=== PATIENT | male | born 1950 | race Caucasian/White ===

== ENCOUNTER → 2016-11-12 | Outpatient (CLI) | payer BC, MEDICARE ==
[~2016-11-12] MED LIST: AMBIEN 10MG10 MG PO; ASPI325T6 PO; ASPIR-LOW81 MG PO; ASPIRIN 81M81 MG/TA2 PO; COZAAR100 MG PO; DILAUDID 2MG TAB2 MG PO; IMDUR 30MG30 MG/TAB PO; LOPRESSOR 225 MG/TAB PO; LOPRESSOR 550 MG/TAB PO; LORTAB 5/500 501 TAB PO; NITROSTAT0.4 MG/TAB SL; PRINIVIL20 MG PO; TOPROL XL50 MG PO; VALIUM 5MG T5 MG/TAB PO; VYTORIN; VYTORIN 10 MG-41 TAB PO; ZOCOR 80MG80 MG PO
== END ==
LOC: COL.RAD 08:57
DX: M48.06 Spinal stenosis, lumbar region (principal); M51.26 Other intervertebral disc displacement, lumbar region; M47.817 Spondylosis without myelopathy or radiculopathy, lumbosacral region

== ENCOUNTER 2017-09-18 06:40 | Day surgery (SDC) | payer MEDICARE, BC ==
[~2017-09-18] VITALS: Ht 172.7 cm; Wt 71.2 kg
[~2017-09-18 06:40] MED LIST changes: -IMDUR 30MG30 MG/TAB PO; +IMDUR 60MG60 MG/TAB PO
[2017-09-18] MEDS ORDERED: LOPRESSOR100 MG PO (06:58)
[2017-09-18] MEDS ORDERED: PROTONIX 40MG T40 MG PO (07:00)
[2017-09-18] MEDS ORDERED: NORVASC 10MG10 MG PO (07:00)
[2017-09-18 07:08] VITALS: BP 125/84; PULSE 53; TEMP 98.4
[2017-09-18 08:24] VITALS: BP 115/84; PULSE 57; TEMP 98
[2017-09-18 08:40] VITALS: BP 104/68; PULSE 52
[2017-09-18 08:55] VITALS: BP 118/81; PULSE 58
== END 2017-09-18 09:05 | disposition home or self-care (01) ==
LOC: SDCO 06:40
DX: K22.70 Barrett's esophagus without dysplasia (principal); R10.13 Epigastric pain; K21.9 Gastro-esophageal reflux disease without esophagitis; Z87.11 Personal history of peptic ulcer disease
CPT/HCPCS: OP; J2250; J3010; J7030

== ENCOUNTER 2019-09-12 05:53 | Day surgery (SDC) | payer MEDICARE, BC ==
[~2019-09-12] VITALS: Ht 172.8 cm; Wt 61.4 kg
[2019-09-12] VITALS (13 sets, daily range): BP systolic 98–145; BP diastolic 70–88; PULSE 52–69; TEMP 98
[~2019-09-12 05:53] MED LIST changes: +NORVASC 10MG10 MG PO; +PROTONIX 40MG T40 MG PO
[2019-09-12 06:54] LABS: HEMATOCRIT 39.3 % (42.0-52.0); HEMOGLOBIN 13.1 g/dl (13.5-18.0); MEAN CELL VOLUME 88 fl (80.0-100.0); MEAN CORPUSCULAR HEMOGLOBIN 29 pg (27.0-31.0); MEAN CORPUSCULAR HGB CONC 33 g/dl (33.0-37.0); MEAN PLATELET VOLUME 12.8 fl (7.4-10.4); PLATELET COUNT 132 K/mm3 (130-400); RED BLOOD COUNT 4.46 M/mm3 (4.20-5.60); REDCELL DISTRIBUTION WIDTH-CV 13.6 % (11.5-14.5)
[2019-09-12 06:59] LABS: PROTHROMBIN TIME 11.3 SECONDS (9.7-12.8)
[2019-09-12 07:02] LABS: PARTIAL THROMBOPLASTIN TIME 33.1 SECONDS (26.0-37.0)
[2019-09-12 07:08] LABS: CALCIUM 9.3 mg/dL (8.4-10.2); CREATININE, serum 0.81 (0.66-1.25); POTASSIUM 4.1 mmol/L (3.4-5.0)
[2019-09-12] MEDS ORDERED: ASPIRIN 81M81 MG/TA2 PO (07:48)
[2019-09-12] MEDS ORDERED: NITROSTAT0.4 MG/TAB SL (07:51)
--- NOTE | 2019-09-12 08:39 | NUR ---
SEE MERGE DOCUMENTATION FOR MEDICATION ADMINISTRATION TIMES AND INTRA/POST PROCEDURE SEDATION ASSESSMENTS. PLAN FOR RIGHT FEMORAL ACCESS.
[2019-09-12] MEDS ORDERED: IMDUR 60MG60 MG/TAB PO (09:45)
--- NOTE | 2019-09-12 09:45 | NUR ---
Patient transported to [facility] at this time. Connected to VS monitors on arrival, all VS's WNL. Bedside report/handoff to JEAN-PIERRE Hoffman. Right femoral access site assessed; site soft to palpation and dressing dry and intact. Right DP pulse +2. Pt denies pain or sensation changes. Education provided regarding flat time, movement restrictions, and s/sx to report. Pt verbalizes understanding of instructions. All questions answered.
--- NOTE | 2019-09-12 14:20 | NUR ---
Discharge instructions given to pt.Pt verbalizes understanding.INt removed,catheter tip intact.Pt escorted out via wheelchair by this nurse.
== END 2019-09-12 15:05 | disposition home or self-care (01) ==
LOC: COL.CAR 05:53
PROVIDERS: Internal Medicine Cardiovascular Disease
DX: I25.110 Atherosclerotic heart disease of native coronary artery with unstable angina pectoris (principal); I10 Essential (primary) hypertension; B19.20 Unspecified viral hepatitis C without hepatic coma; E78.5 Hyperlipidemia, unspecified; G89.29 Other chronic pain; M54.9 Dorsalgia, unspecified; Z88.8 Allergy status to other drugs, medicaments and biological substances; Z79.82 Long term (current) use of aspirin; Z87.891 Personal history of nicotine dependence; Z95.1 Presence of aortocoronary bypass graft
CPT/HCPCS: J1644; J2250; J3010; Q9967

== ENCOUNTER 2019-10-02 14:24 | Emergency (ER) | payer MEDICARE, BC ==
[~2019-10-02] VITALS: Ht 172.7 cm; Wt 60.0 kg
[2019-10-02 14:25] VITALS: TEMP 97.3
[2019-10-02 15:04] LABS: BASO # 0.1 (0.0-0.2); BASO % 0.5 % (0.0-2.0); EOS # 0.3 (0.0-0.7); EOS % 1.9 % (0-4.0); GRAN # 12.9 (1.4-6.5); GRAN % 80.6 % (42.2-75.2); HEMOGLOBIN 13.1 g/dl (13.5-18.0); LYMPH # 1.7 (1.2-3.4); LYMPH % 10.7 % (20.0-51.0); MEAN CELL VOLUME 89 fl (80.0-100.0); MEAN CORPUSCULAR HEMOGLOBIN 30 pg (27.0-31.0); MEAN CORPUSCULAR HGB CONC 34 g/dl (33.0-37.0); MEAN PLATELET VOLUME 12.3 fl (7.4-10.4); MONO # 0.9 (0.1-0.6); MONO % 5.7 % (1.7-9.3); PLATELET COUNT 172 K/mm3 (130-400); RED BLOOD COUNT 4.38 M/mm3 (4.20-5.60); REDCELL DISTRIBUTION WIDTH-CV 13.3 % (11.5-14.5)
[2019-10-02 15:17] LABS: ALANINE AMINOTRANSFERASE 13 U/L (4-49); ALBUMIN 4.4 gm/dL (3.5-5.0); ALKALINE PHOSPHATASE 90 U/L (50-136); ANION GAP 12 mmol/L (7-16); AST,SGOT 22 U/L (15-37); BILIRUBIN,TOTAL 0.8 mg/dL (0.0-1.0); BLOOD UREA NITROGEN 16 mg/dL (9-20); CALCIUM 9.3 mg/dL (8.4-10.2); CARBON DIOXIDE 23 mmol/L (22-30); CHLORIDE 101 mmol/L (98-107); CREATININE, serum 1.33 (0.66-1.25); GLUCOSE 201 mg/dL (74-106); POTASSIUM 3.4 mmol/L (3.4-5.0); SODIUM 135 mmol/L (137-145); TOTAL PROTEIN 7.2 gm/dL (6.4-8.2)
[2019-10-02 15:27] LABS: TROPONIN-I < 0.012 ng/mL (0.000-0.035)
[2019-10-02 18:18] LABS: COLLECTION METHOD CLEAN CATCH
[2019-10-02 18:31] LABS: PH 6 (5-8); SQUAMOUS EPITHELIAL None Seen /hpf; URINE APPEARANCE Clear; URINE BACTERIA None Seen /hpf; URINE BILIRUBIN Negative (NEGATIVE); URINE BLOOD Negative (NEGATIVE); URINE COLOR Yellow; URINE GLUCOSE Negative (NEGATIVE); URINE KETONE Negative (NEGATIVE); URINE LEUKOCYTE ESTERASE Negative (NEGATIVE); URINE NITRATE Negative (NEGATIVE); URINE PROTEIN(semi-quant) Negative (NEGATIVE); URINE RBC None Seen /hpf; URINE UROBILINOGEN Negative (NEGATIVE)
[2019-10-02 18:54] VITALS: BP 127/78; PULSE 68
== END 2019-10-02 18:54 | disposition home or self-care (01) ==
LOC: COL.ER 14:24
PROVIDERS: Emergency Medicine
DX: S02.2XXA Fracture of nasal bones, initial encounter for closed fracture (principal); T67.5XXA Heat exhaustion, unspecified, initial encounter; R55 Syncope and collapse; I25.10 Atherosclerotic heart disease of native coronary artery without angina pectoris; Z95.9 Presence of cardiac and vascular implant and graft, unspecified; Z79.82 Long term (current) use of aspirin; V49.9XXA Car occupant (driver) (passenger) injured in unspecified traffic accident, initial encounter
CPT/HCPCS: J2405; J7030

== ENCOUNTER 2019-11-13 08:53 | Emergency (ER) | payer MEDICARE, BC ==
[~2019-11-13] VITALS: Ht 172.7 cm; Wt 59.1 kg
[2019-11-13 08:59] VITALS: TEMP 98.1
[2019-11-13 09:11] LABS: BASO # 0.1 (0.0-0.2); BASO % 1.2 % (0.0-2.0); EOS # 0.4 (0.0-0.7); GRAN # 6.1 (1.4-6.5); GRAN % 66.8 % (42.2-75.2); HEMATOCRIT 43.9 % (42.0-52.0); HEMOGLOBIN 15.2 g/dl (13.5-18.0); LYMPH # 1.9 (1.2-3.4); LYMPH % 21.2 % (20.0-51.0); MEAN CELL VOLUME 86 fl (80.0-100.0); MEAN CORPUSCULAR HEMOGLOBIN 30 pg (27.0-31.0); MEAN CORPUSCULAR HGB CONC 35 g/dl (33.0-37.0); MEAN PLATELET VOLUME 12.8 fl (7.4-10.4); MONO # 0.6 (0.1-0.6); MONO % 6.5 % (1.7-9.3); PLATELET COUNT 140 K/mm3 (130-400); RED BLOOD COUNT 5.09 M/mm3 (4.20-5.60); REDCELL DISTRIBUTION WIDTH-CV 12.5 % (11.5-14.5)
[2019-11-13 09:25] LABS: ALANINE AMINOTRANSFERASE 12 U/L (4-49); ALBUMIN 5.1 gm/dL (3.5-5.0); ALKALINE PHOSPHATASE 93 U/L (50-136); ANION GAP 9 mmol/L (7-16); AST,SGOT 31 U/L (15-37); BILIRUBIN,TOTAL 0.8 mg/dL (0.0-1.0); BLOOD UREA NITROGEN 11 mg/dL (9-20); CARBON DIOXIDE 25 mmol/L (22-30); CHLORIDE 103 mmol/L (98-107); CREATININE, serum 0.89 (0.66-1.25); GLUCOSE 117 mg/dL (74-106); POTASSIUM 4.2 mmol/L (3.4-5.0); SODIUM 138 mmol/L (137-145); TOTAL PROTEIN 8.4 gm/dL (6.4-8.2)
[2019-11-13 09:36] LABS: TROPONIN-I < 0.012 ng/mL (0.000-0.035)
[2019-11-13 09:50] LABS: COLLECTION METHOD CLEAN CATCH
[2019-11-13 09:58] LABS: PH 7 (5-8); SQUAMOUS EPITHELIAL None Seen /hpf; URINE APPEARANCE Clear; URINE BACTERIA None Seen /hpf; URINE BILIRUBIN Negative (NEGATIVE); URINE BLOOD Negative (NEGATIVE); URINE COLOR Straw; URINE GLUCOSE Negative (NEGATIVE); URINE KETONE Negative (NEGATIVE); URINE LEUKOCYTE ESTERASE Negative (NEGATIVE); URINE NITRATE Negative (NEGATIVE); URINE PROTEIN(semi-quant) Negative (NEGATIVE); URINE RBC 0-2 /hpf; URINE UROBILINOGEN Negative (NEGATIVE)
[2019-11-13 13:00] VITALS: BP 148/91; PULSE 76
== END 2019-11-13 13:17 | disposition home or self-care (01) ==
LOC: COL.ER 08:53
PROVIDERS: Emergency Medicine
DX: R07.9 Chest pain, unspecified (principal); R06.00 Dyspnea, unspecified; R42 Dizziness and giddiness; I10 Essential (primary) hypertension; Z87.891 Personal history of nicotine dependence; Z95.1 Presence of aortocoronary bypass graft; Z98.61 Coronary angioplasty status; Z79.82 Long term (current) use of aspirin
CPT/HCPCS: J7030; Q9967

== ENCOUNTER 2020-01-11 07:05 | Outpatient (CLI) | payer MEDICARE, BC ==
[~2020-01-11] VITALS: Ht 172.8 cm; Wt 63.0 kg
[2020-01-11 07:29] VITALS: BP 123/99; PULSE 90; TEMP 97.7
[2020-01-11] MEDS ORDERED: NORVASC2.5 MG PO (07:48)
[2020-01-11] MEDS ORDERED: PROTONIX 40MG T40 MG PO (07:48)
[2020-01-11] MEDS ORDERED: CARDIZEM CD 12120 MG PO (07:49)
[2020-01-11 07:53] VITALS: BP 120/93; PULSE 90; TEMP 97.7
--- NOTE | 2020-01-11 09:30 | NUR ---
PROCEDURE COMPLETED BY DR EARL, REPORT FROM KATE MOREJON. PT IS UP IN ROOM DRESSED. DRESSING OVER MIDDLE CHEST IS CLEAN AND DRY. NO C/O. REVIEWED DISCHARGE INST. WITH PT AND . WILL INTELLIGENCE APPLICATIONS NEW RX, REVIEWED INCISION CARE AND APPT. WITH PT WITH VERBAL UNDERSTANDING. PT DISCHARGED AT 0950 AMB. WITH TO CAR
[2020-01-11] MEDS ORDERED: CEPHALEXIN500 M1 PO (09:39)
== END 2020-01-11 10:50 | disposition home or self-care (01) ==
LOC: COL.CAR 07:05
DX: I47.2 Ventricular tachycardia (principal); R55 Syncope and collapse; I10 Essential (primary) hypertension; E78.5 Hyperlipidemia, unspecified; Z88.8 Allergy status to other drugs, medicaments and biological substances; Z95.1 Presence of aortocoronary bypass graft

== ENCOUNTER 2021-02-05 17:18 | Inpatient (IN) | payer MEDICARE, BC ==
[2021-02-05] VITALS (63 sets, daily range): BP systolic 154–158; BP diastolic 104–105; PULSE 85–92; TEMP 97.7; O2SAT 90–98
[~2021-02-05] VITALS: Ht 175.3 cm; Wt 60.7 kg
[~2021-02-05 17:18] MED LIST changes: +CARDIZEM CD 12120 MG PO; +CEPHALEXIN500 M1 PO; +NORVASC2.5 MG PO
[2021-02-05 18:15] LABS: BASO # 0.1 K/mm3 (0.0-0.2); BASO % 0.7 % (0.0-2.0); EOS # 0.4 K/mm3 (0.0-0.7); EOS % 2.9 % (0-4.0); GRAN # 10.1 K/mm3 (1.4-6.5); GRAN % 74.4 % (42.2-75.2); HEMATOCRIT 45.8 % (42.0-52.0); HEMOGLOBIN 16.4 g/dl (13.5-18.0); LYMPH # 1.9 K/mm3 (1.2-3.4); MEAN CELL VOLUME 83 fl (80.0-100.0); MEAN CORPUSCULAR HEMOGLOBIN 30 pg (27.0-31.0); MEAN CORPUSCULAR HGB CONC 36 g/dl (33.0-37.0); MEAN PLATELET VOLUME 12.6 fl (7.4-10.4); MONO # 1.1 K/mm3 (0.1-0.6); MONO % 7.7 % (1.7-9.3); PLATELET COUNT 174 K/mm3 (130-400); REDCELL DISTRIBUTION WIDTH-CV 12.4 % (11.5-14.5)
[2021-02-05 18:27] LABS: ALBUMIN 4.7 gm/dL (3.4-4.8); ALKALINE PHOSPHATASE 101 U/L (40-150); ANION GAP 12 mmol/L (7-16); AST,SGOT 14 U/L (5-34); BLOOD UREA NITROGEN 17 mg/dL (8-26); CALCIUM 9.8 mg/dL (8.4-10.2); CARBON DIOXIDE 20 mmol/L (23-31); CHLORIDE 104 mmol/L (98-107); CREATININE, serum 0.84 mg/dL (0.72-1.25); GLUCOSE 99 mg/dL (70-99); POTASSIUM 3.6 mmol/L (3.5-4.5); SODIUM 136 mmol/L (136-145); TOTAL PROTEIN 7.7 gm/dL (6.2-8.1)
[2021-02-05 18:29] LABS: ALANINE AMINOTRANSFERASE < 6 U/L (0-55)
[2021-02-05 18:34] LABS: TROPONIN-I < 0.010 ng/mL (0.00-0.033)
[2021-02-06] VITALS (689 sets, daily range): BP systolic 116–164; BP diastolic 74–110; PULSE 62–110; TEMP 97.3–98.6; O2SAT 87–99
[2021-02-06] MEDS ORDERED: KEPPRA 500MG500 MG PO (05:58)
--- NOTE | 2021-02-06 07:00 | NUR ---
RECEIVED REPORT FROM JEAN-PIERRE CONTE. PT SLEEPING IN BED. VSS. CALL LIGHT WITHIN REACH. SEE GTT FLOWSHEET.
[2021-02-06 07:59] LABS: BASO # 0.1 K/mm3 (0.0-0.2); BASO % 0.7 % (0.0-2.0); EOS # 0.1 K/mm3 (0.0-0.7); EOS % 0.9 % (0-4.0); GRAN # 10.6 K/mm3 (1.4-6.5); GRAN % 76.8 % (42.2-75.2); HEMATOCRIT 45.8 % (42.0-52.0); HEMOGLOBIN 16.4 g/dl (13.5-18.0); LYMPH % 14.3 % (20.0-51.0); MEAN CELL VOLUME 84 fl (80.0-100.0); MEAN CORPUSCULAR HEMOGLOBIN 30 pg (27.0-31.0); MEAN CORPUSCULAR HGB CONC 36 g/dl (33.0-37.0); MONO # 0.9 K/mm3 (0.1-0.6); MONO % 6.9 % (1.7-9.3); PLATELET COUNT 173 K/mm3 (130-400); RED BLOOD COUNT 5.44 M/mm3 (4.20-5.60); REDCELL DISTRIBUTION WIDTH-CV 12.8 % (11.5-14.5)
[2021-02-06 08:12] LABS: CALCIUM 9.4 mg/dL (8.4-10.2); CREATININE, serum 0.82 mg/dL (0.72-1.25); POTASSIUM 3.6 mmol/L (3.5-4.5)
--- NOTE | 2021-02-06 12:31 | NUR ---
Initial visit; Patient and his thanked Blemish Remover for looking in on him and offering God's blessings.
--- NOTE | 2021-02-06 12:37 | NUR ---
power lineworker met with patient at bedside. Lore ([phone]) present at bedside as well. Patient reports that he is fully independent with his activities of daily living and he does not utilize any medical equipment such as a cane, walker, or O2. Is hard of hearing that requires him to wear hearing aids. Patient reports that his PCP is [facility] Coreas and that he utilizes [facility] for perscriptions. Lore reports that the patient does have a DPOA-HC established and that she is listed as his agent. Contact made with he office of Shanna Coreas who reports to having a DPOA-HC on file. Request made for their office to fax a copy of it to the ICU fax.
--- NOTE | 2021-02-06 13:37 | NUR ---
PT TO [facility]NAGER [facility]IT[facility] WITHOUT HEPARIN GTT AT THIS TIME. WILL WAIT FOR POST CATH ORDERS IF NEED TO CONTINUE LATER OR NOT.
--- NOTE | 2021-02-06 13:50 | NUR ---
SEE MERGE FOR MEDICATION ADMINISTRATION TIMES/DOSAGES AND INTRA/POST SEDATION ASSESSMENT.
--- NOTE | 2021-02-06 15:20 | NUR ---
PT TO [facility]IP[facility] AT 1337, REPORT RECEIVED FROM JEAN-PIERRE STOVER AT 0524. PT ARRIVES BACK TO ICU 2 AT 1520. PLACED ON BEDSIDE CONTINUOUS MONITOR. CALL LIGHT WITHIN REACH. SEE GTT FLOWSHEET. PT DENIES ANY CP/PRESSURE. RT GROIN CATH SITE SOFT AND WITHOUT PAIN UPON PALPATATION. PT INFORMED OF POC THAT THEY HAVE A FLAT TIME TILL 1920. VERBALIZED UNDERSTANDING.
[2021-02-06 18:33] LABS: COLLECTION METHOD CLEAN CATCH
[2021-02-06 18:49] LABS: MUCOUS Present /lpf; PH 6 (5-8); SQUAMOUS EPITHELIAL 0-2 /hpf; URINE APPEARANCE Clear; URINE BACTERIA None Seen /hpf; URINE BILIRUBIN Negative (NEGATIVE); URINE BLOOD Negative (NEGATIVE); URINE COLOR Yellow; URINE GLUCOSE Negative (NEGATIVE); URINE KETONE 2+ (NEGATIVE); URINE LEUKOCYTE ESTERASE Negative (NEGATIVE); URINE NITRATE Negative (NEGATIVE); URINE PROTEIN(semi-quant) Negative (NEGATIVE); URINE UROBILINOGEN Negative (NEGATIVE)
--- NOTE | 2021-02-06 20:00 | NUR ---
PM ASSESSMENT COMPLETE. PT IS NOT ABLE TO MOVE IN BED, RIGHT FEMORAL PUNCTURE SITE LOOKS WNL, CDI DRESSING. PT REPORTS SOMEWHAT OF AN UPSET STOMACH STATING FROM THE NITRO, BUT NO ACTIVE VOMITTING OR SEVERE NAUSEA. DENIES PAIN. WILL CONTINUE TO MONITOR.
[2021-02-06] MEDS ORDERED: DESYREL 100MG100 MG PO (20:58)
[2021-02-07] VITALS (315 sets, daily range): BP systolic 108–129; BP diastolic 72–79; PULSE 78–108; TEMP 98.4–98.6; O2SAT 85–98
[2021-02-07] MEDS ORDERED: BRILINTA90 MG PO (09:13)
[2021-02-07] MEDS ORDERED: LIPITOR 80MG80 MG PO (09:14)
[2021-02-07] MEDS ORDERED: NITROSTAT0.4 MG/TAB SL (09:17)
--- NOTE | 2021-02-07 10:54 | NUR ---
pATIENT DISCHARGED. DISCHARGE INSTRUCTIONS, PAPERWORK AND PHYSICIAN RECOMMENDATIONS DISCUSSED. FOLLOW UP APPTS REVIEWED. PRESENT FOR THIS CONVERSATION. PATIENT WHEELED OUT BY JEAN-PIERRE CHAPMAN
== END 2021-02-07 10:30 | disposition home or self-care (01) | DRG 247 ==
LOC: COL.ER 17:18 → ICU 19:11
PROVIDERS: Emergency Medicine; Student in an Organized Health Care Education/Training Program; ADMIT Internal Medicine
PROC: 027034Z Dilation of Coronary Artery, One Artery with Drug-eluting Intraluminal Device, Percutaneous Approach (ICD-10-PCS; principal; 2021-02-05)
PROC: 02703ZZ Dilation of Coronary Artery, One Artery, Percutaneous Approach (ICD-10-PCS; 2021-02-05)
PROC: 4A023N7 Measurement of Cardiac Sampling and Pressure, Left Heart, Percutaneous Approach (ICD-10-PCS; 2021-02-05)
PROC: B2111ZZ Fluoroscopy of Multiple Coronary Arteries using Low Osmolar Contrast (ICD-10-PCS; 2021-02-05)
DX: I25.110 Atherosclerotic heart disease of native coronary artery with unstable angina pectoris (principal); I10 Essential (primary) hypertension; E78.5 Hyperlipidemia, unspecified; K21.9 Gastro-esophageal reflux disease without esophagitis; Z20.822 Contact with and (suspected) exposure to COVID-19; Z95.1 Presence of aortocoronary bypass graft; Z79.82 Long term (current) use of aspirin; Z23 Encounter for immunization
CPT/HCPCS: 99223-AI; 99233-AI; 99239; C1725; C1760; C1769; C1874; C1884; C1887; C1894; C9113; C9604; J0360; J0583; J1644; J2270; J2405; Q9967

== ENCOUNTER → 2021-11-19 | Outpatient (CLI) | payer MEDICARE, BC ==
[~2021-11-19] MED LIST changes: +BRILINTA90 MG PO; +DESYREL 100MG100 MG PO; +KEPPRA 500MG500 MG PO; +LIPITOR 80MG80 MG PO
== END ==
LOC: MHCPAIN 10:47
DX: M47.897 Other spondylosis, lumbosacral region (principal); M54.50 Low back pain, unspecified; M54.16 Radiculopathy, lumbar region; M79.2 Neuralgia and neuritis, unspecified; M51.36 Other intervertebral disc degeneration, lumbar region
CPT/HCPCS: G0463

== ENCOUNTER 2023-10-09 06:48 | Day surgery (SDC) | payer MEDICARE, BC ==
[~2023-10-09] VITALS: Ht 172.8 cm; Wt 63.9 kg
[~2023-10-09 06:48] MED LIST changes: +BUSPAR5 MG PO; +DESYREL DIVIDO150 M1 PO; +MIRTAZAPINE7.5 MG; +NORVASC2.5 MG; +PLAVIX 75MG TAB75 MG; +ZOLOFT 50MG50 MG; +ZOLOFT 50MG50 MG PO
[2023-10-09] MEDS ORDERED: VALIUM 2MG T2 MG/TAB PO (08:00)
[2023-10-09] MEDS ORDERED: MULTI VITAMINS1 TAB PO (08:03)
[2023-10-09] MEDS ORDERED: EFFEXOR-XR150 MG PO (08:04)
[2023-10-09] MEDS ORDERED: LIPITOR 80MG80 MG PO (08:05)
[2023-10-09] MEDS ORDERED: ARICEPT 5MG PO (08:06)
[2023-10-09] MEDS ORDERED: AMITRIPTYLINE H10 M1 PO (08:06)
[2023-10-09 08:36] VITALS: BP 114/88; PULSE 61; TEMP 97.3
--- NOTE | 2023-10-09 09:41 | NUR ---
Please see merge documentation for record of interventions, vitals and medications administered during loop removal and replacement with Dr. Morocho.
[2023-10-09] MEDS ORDERED: Midazolam 2 MG/2 ML VIAL IV SCH (09:47)
[2023-10-09] MEDS ORDERED: fentaNYL 50 MCG/ML 2 ML VIAL IV SCH (09:48)
[2023-10-09] MEDS ORDERED: NS 1,000 ML IV.SOLN. IR SCH (09:50)
[2023-10-09 10:07] VITALS: BP 124/74; PULSE 71
--- NOTE | 2023-10-09 10:11 | NUR ---
Patient returned from procedure,report from JEAN-PIERRE Joseph.
[2023-10-09 10:15] VITALS: BP 111/82; PULSE 66
[2023-10-09 10:30] VITALS: BP 104/72; PULSE 63
[2023-10-09 10:45] VITALS: BP 111/70; PULSE 63
[2023-10-09 11:00] VITALS: BP 122/79; PULSE 66
--- NOTE | 2023-10-09 12:00 | NUR ---
Discharge instructions given to patient.Patient verbalizes understanding.Pt escorted out via wheelchair by this nurse.
== END 2023-10-09 12:21 ==
LOC: COL.CAR 06:48
DX: Z45.09 Encounter for adjustment and management of other cardiac device (principal); I25.10 Atherosclerotic heart disease of native coronary artery without angina pectoris; I10 Essential (primary) hypertension; E78.5 Hyperlipidemia, unspecified; I47.10 Supraventricular tachycardia, unspecified; I47.29 Other ventricular tachycardia; F17.220 Nicotine dependence, chewing tobacco, uncomplicated; I77.819 Aortic ectasia, unspecified site; Z95.5 Presence of coronary angioplasty implant and graft; Z79.82 Long term (current) use of aspirin; Z79.02 Long term (current) use of antithrombotics/antiplatelets; Z79.899 Other long term (current) drug therapy
CPT/HCPCS: C1764; J0690; J2250; J3010; J7030